=== PATIENT | male | born 1955 | race African-American/Black ===

== ENCOUNTER 2017-12-27 23:26 | Emergency (ER) | payer OTHER ==
[~2017-12-27] VITALS: Ht 177.8 cm; Wt 114.2 kg
[2017-12-27 23:53] LABS: BASOPHIL (%) 0.8 % (0-1); BASOPHIL COUNT 0.1 K/uL (0-0.1); EOSINOPHIL (%) 2.2 % (0-5); EOSINOPHIL COUNT 0.1 K/uL (0-0.3); HEMATOCRIT 38.2 % (38.0-50.0); HEMOGLOBIN 13.2 G/DL (12.5-16.6); IMMATURE GRANULOCYTE (%) 0.3 % (0.0-0.7); LYMPHOCYTE (%) 30.7 % (15-42); LYMPHOCYTE COUNT 1.8 K/uL (1.0-2.8); MCH 30.5 PG (29.0-34.0); MCHC 34.6 G/DL (30.0-36.0); MCV 88.2 FL (86-99); MONOCYTE (%) 12.6 % (3-12); MONOCYTE COUNT 0.8 K/uL (0-0.8); NEUTROPHIL (%) 53.4 % (45-76); NEUTROPHIL COUNT 3.2 K/uL (1.8-6.4); PLATELET COUNT 201 K/uL (156-360); RBC DIS.WIDTH-CV 13.7 % (11.8-14.6); RBC DIS.WIDTH-SD 44.4 % (39-53); RED BLOOD COUNT 4.33 M/uL (4.00-5.50)
[2017-12-28 00:06] LABS: ALBUMIN 4.3 g/dL (3.2-4.8)
[2017-12-28 00:07] LABS: CHLORIDE 109 mEq/L (99-109); POTASSIUM 3.3 mEq/L (3.7-5.4); SODIUM 144 mEq/L (136-147)
[2017-12-28 00:09] LABS: GLUCOSE 131 mg/dL (70-99); TOTAL PROTEIN 6.9 g/dL (6.4-8.3)
[2017-12-28 00:11] LABS: TOTAL BILIRUBIN 0.4 mg/dL (0.0-1.0)
[2017-12-28 00:12] LABS: ALKALINE PHOSPHATASE 76 IU/L (3-129)
[2017-12-28 00:14] LABS: AST (GOT) 31 IU/L (2-34); DIRECT BILIRUBIN 0.2 mg/dL (0.0-0.3); UREA NITROGEN (BUN) 17 mg/dL (9-23)
[2017-12-28 00:14] LABS: APPEARANCE SL.HAZY ((CLEAR)); BILIRUBIN NEGATIVE; BLOOD LARGE; COLOR STRAW ((YELLOW)); GLUCOSE (STRIP) NEGATIVE; KETONES NEGATIVE; LEUKOCYTES NEGATIVE; NITRITE NEGATIVE; PROTEIN (STRIP) NEGATIVE; SPECIFIC GRAVITY 1.011 (1.000-1.030); UROBILINOGEN 0.2 MG/DL (0.2-1.0)
[2017-12-28 00:16] LABS: ALT (GPT) 33 IU/L (3-49); CREATINE KINASE 290 IU/L (1-294); LIPASE 30 U/L (1.0-51.0)
[2017-12-28 00:18] LABS: GFR ESTIMATE (CALCULATED) > 59 mL/min/ (58.99-99999)
[2017-12-28 00:37] LABS: RED BLOOD CELLS 30-40 /HPF (0-5)
[2017-12-28 00:38] LABS: BACTERIA NONE SEEN /HPF; EPITHELIAL CELLS RARE /HPF; MUCUS RARE /LPF; UCUL ADDED? NO; WHITE BLOOD CELLS NONE SEEN /HPF (0-5)
[2017-12-28 03:05] VITALS: BP 160/91
== END 2017-12-28 03:13 ==
LOC: EDBD 23:26 → EME 23:26
PROVIDERS: Emergency Medicine
DX: R31.9 Hematuria, unspecified (principal); Z87.891 Personal history of nicotine dependence
CPT/HCPCS: 74176; 80048; 80076; 81003; 82550; 83690; 85025; 99281; 99285